=== PATIENT | male | born 1975 | race Caucasian/White ===

== ENCOUNTER 2021-03-17 06:58 | Observation (INO) | payer MEDICAID, SELFPAY ==
[2021-03-17] VITALS (32 sets, daily range): BP systolic 107–145; BP diastolic 63–84; PULSE 65–93; RESP 12–25; TEMP 36.5–37.1; O2SAT 95–100; BMI 24.3
--- NOTE | 2021-03-17 07:20 | ECG_ITS ---
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 Measurements Intervals [place] Rate: 73 P: 65 WV: 191 QRS: -17 QRSD: 88 T: 32 QT: 361 QTc: 400 Interpretive Statements SINUS RHYTHM POSSIBLE LEFT ATRIAL ENLARGEMENT [-0.1mV P WAVE IN V1/V2] No previous ECG available for comparison Electronically Signed On 03-17-2021 17:09:42 CDT by Franklin Mackenzie M.D. [email or web address]eFuelDepotCollege of Nursing and Health Sciences ([facility])[facility] hospitalAmeriTech College/store/OM/[id number]
[2021-03-17] MEDS: morphine 4 mg/mL SDV 1 mL IVP (07:38)
[2021-03-17 07:39] LABS: Glucose Point of Care 112 mg/dL (70-110)
[2021-03-17] MEDS: sodium chloride 0.9% 1,000 ML 75 ML IV ×2 (07:39→21:45)
[2021-03-17 08:21] LABS: Basophils % 0.5 %; Eosinophils # 0.1 10^3/uL (0.0-0.8); Eosinophils % 2.8 %; Hematocrit 38.8 % (42.0-52.0); Hemoglobin 13.1 g/dL (11.7-16.6); Lymphocytes # 0.6 10^3/uL (0.8-4.8); Lymphocytes % 14.7 %; Mean Corpuscular HGB Conc 33.8 g/dL (30.0-36.0); Mean Corpuscular Hemoglobin 27.9 pg (28.0-34.0); Mean Corpuscular Volume 82.6 fL (80-94); Mean Platelet Volume 12.2 fL (7.4-10.4); Monocytes # 0.5 10^3/uL (0.2-0.9); Monocytes % 11.6 %; Neutrophils # 2.72 10^3/uL (1.8-7.7); Neutrophils % 70.1 %; Nucleated Red Blood Cells % 0 %; Platelet Count 95 10^3/cmm (130-400); Red Cell Distribution Width 13.9 % (12.1-15.1); White Blood Count 3.9 10^3/uL (4.0-10.0)
--- NOTE | 2021-03-17 08:22 | P.HP_ITS ---
Providers/Chief Complaint Admitting Physician: Yaritza Chavez MD Chief Complaint: Bilateral Lower Ext Ischemia History of Present Illness Arias Blanca is a 45 year old male who presents as a transfer from [facility]. He reports he has been having difficulties with his feet, lower extremities for years. He reports he has had intermittent infections for which she has received antibiotics. Lately, they have been more concerned regarding the blood flow to his lower extremities. He reports he has had an ultrasound before, but never a CTA. In 2018 he was evaluated by vascular surgery and not thought to have significant vascular disease at that time. He reports lately he has been hospitalized about every month to 6 weeks and diagnosed with cellulitis bilaterally, given antibiotics, gradually gotten amber r and gone home. It seems worse currently. He reports when he gets up and walks he reliably has pain in his lower extremities, distal to his calves and severe foot pain that is alleviated by sitting. He reports swelling of his legs, erythema of his legs. He denies any fever. Review of Systems General: Reports: 10 or more systems reviewed and unremarkable except in HPI and below Const: Denies: fever(s) or chills Eyes: Denies: change in vision ENMT: Denies: throat pain Card: Denies: chest pain Resp: Denies: dyspnea GI: Denies: abdominal pain : Denies: flank pain Musc: Reports: extremity pain and extremity swelling Skin/Breast: Reports: erythema; Denies: rash Neuro: Denies: headache(s) Endo: Denies: polyuria Qamar/Lymph: Denies: easy bruising All/Imm: Denies: urticaria Medications/Allergies Allergies Allergy/AdvReac Type Severity Reaction Status Date / Time No Known Allergies Allergy Verified 03/17/21 07:25 PFSH Acute PFSH: Medical History (Updated 03/17/21 @ 08:34 by Cuate Tan MD) Diabetes Neuropathy Family History (Updated 03/17/21 @ 08:28 by Cuate Tan MD) Other Diabetes Social History (Updated 03/17/21 @ 08:28 by Cuate Tan MD) Smoking and tobacco status: never smoked Alcohol intake: never Supplemental PFSH Information: Denies any past surgical history. Vitals/I&O/Wt Last Vital Signs Temp 98.1 F 03/17/21 07:04 Pulse 85 03/17/21 07:45 Resp 18 03/17/21 07:45 BP 133/75 03/17/21 07:45 Pulse Ox 100 03/17/21 07:45 Weight last 48 hrs Weight 83.461 kg Physical Exam Narrative: EXAM NARRATIVE: General exam is a white male, informative, and obvious lower extremity pain HEENT: Pupils equally round. Oropharynx is clear. Neck is supple no lymphadenopathy or thyromegaly Cardiovascular regular rate and rhythm without murmur, no S3 or S4 Lungs clear no wheezing or crackles Abdomen is soft with positive bowel sounds. No obvious organomegaly was deferred Extremities no cyanosis clubbing. Erythema is noted ankles to feet bilaterally. Pulses difficult to feel. Feet are not cold, but loss of hair is apparent over lying the toes. There is pain to palpation. No obvious skin breakdown. Rather symmetric. Data : 03/17/21 07:53 03/17/21 07:53 Micro: Microbiology 03/17/21 08:00 Blood Culture - Preliminary Blood SPECIMEN COLLECTED 03/17/21 07:53 Blood Culture - Preliminary Blood SPECIMEN COLLECTED Other data: White blood cell count 3.0, hemoglobin 14.0, platelet count 106. Sodium 140, potassium 4.2, chloride 103, bicarb 25, creatinine 0.8, LFTs normal. Sedimentation rate 2 Lactic acid 1.1 CPK 60 Covid RNA negative Arterial duplex demonstrates scattered plaque formation both lower extremities with the right demonstrating triphasic waveforms in the femoral superficial femoral popliteal peroneal and proximal tibial with biphasic flow seen distally. The left demonstrated monophasic flow in the common femoral superficial femoral popliteal peroneal posterior tibial and dorsalis pedis. Some triphasic flow was seen in the proximal profunda. All of this was consistent with moderate to severe bilateral lower extremity peripheral vascular disease. A&P Assessment and plan (1) Lower limb ischemia: Initiate aspirin 325 mg daily Check lipids. Consider statin Heparin drip I will discuss with interventional cardiology regarding potential for consult with them or vascular surgery for further guidance Considering the bilateral nature, that is symmetric and normal sedimentation ra te, no fever, no elevation in white blood cell count I believe cellulitis is unlikely. May need further imaging such as CTA aorta with runoff Change to regular admission. He will require greater than 2 midnights secondary to his severe pain, ischemia, and need for further work-up Pain control with Dilaudid, hydrocodone N.p.o. until I can have a discussion with control systems specialist. Saline for hydration. Check baseline EKG Request records on echocardiogram patient reports was done several months ago. Status: Acute (2) Diabetes: Sliding scale insulin Check hemoglobin A1c Check urinalysis for significant proteinuria. Status: Acute (3) Neuropathy: Initiate Neurontin 300 mg twice daily and increase as tolerated Status: Acute (4) Thrombocytopenia: Check HIV, hepatitis panel, CRP, TSH Status: Acute Additional A&P Information Full code Heparin drip will suffice for DVT prophylaxis Attestations Medical Necessity Statement*: Will need greater than 2 midnight stay for evaluation and treatment of severe lower extremity ischemia with pain. Time Spent in Patient Care: Greater than 35 minutes Coding Level of Care Code Acute Pattern Worker for g Fwd Diagnoses Lower limb ischemia I99.8 Diabetes E11.9 Neuropathy G62.9 Thrombocytopenia D69.6
[2021-03-17 08:29] LABS: INR 1.01 (0.8-1.2); Lactic Sepsis W/Reflex 1.2 mmol/L (0.5-2.2); Partial Thromboplastin Time 28.1 SECONDS (23.9-36.7)
[2021-03-17 08:30] LABS: Alanine Aminotransferase < 5 U/L (0-41); Albumin Level 4.6 g/dL (3.5-5.2); Alkaline Phosphatase 49 IU/L (40-130); Anion Gap 16.7 (5-19); Aspartate Amino Transferase 11 U/L (0-40); Blood Urea Nitrogen 7 mg/dL (6-20); Calcium 8.6 mg/dL (8.5-10.5); Carbon Dioxide 26 mmol/L (22-29); Chloride 99 mmol/L (98-107); Creatinine Clr Calc Pharmacy 151.6765; Globulin 1.8 g/dL (1.3-4.6); Glomerular Filtration Rate 121.4 mL/min (90-130); Glucose 111 mg/dL (65-115); Magnesium 1.7 mg/dL (1.7-2.3); Osmolality Calculated 285 mOsm/kg (285-295); Potassium 3.7 mmol/L (3.5-5.1); Sodium 138 mmol/L (136-145); Total Bilirubin 0.5 mg/dL (0.15-1.2); Total Protein 6.4 g/dL (6.6-8.7)
[2021-03-17 08:53] LABS: C Reactive Protein 0.6 mg/L (0.0-4.9)
--- NOTE | 2021-03-17 08:53 | CT_ITS ---
WS: [id number] CT ANGIOGRAPHY OF THE ABDOMINAL AORTA WITH RUNOFF TO THE ANKLES HISTORY: lower extremity ischemia TECHNIQUE: Arterial injection is performed during imaging to evaluate the aorta and runoff vessels to the ankles. MIP and volume rendering imaging has also been performed. All images are reviewed. All C T scans at [facility] use at least one of these dose optimization techniques: automated ex posure control; mA and/or kV adjustment per patient size (includes targeted exams where dose is match ed to clinical indication); or iterative reconstruction. Contrast: Omnipaque 350; 95 mL IV. DLP: 3393.06 mGy.cm COMPARISON: None available. Abdominal aorta: Very mild atherosclerotic plaque and intimal thickening. No aneurysm or occlusion. C eliac axis, SMA and DIANNA are patent. Normal caliber renal arteries. Bilateral accessory renal arteries . RIGHT lower extremity arterial system: Small amount of calcified plaque in the iliac artery. Common, internal and external iliac arteries are patent. Common femoral and superficial femoral arteries are patent. Deep profunda is patent. Small amount of calcified plaque through the popliteal artery in Hun ter's canal. Adequate three-vessel runoff to the ankle. LEFT lower extremity arterial system: Short segment common iliac artery. Bifurcation is intact. There is calcified plaque and intimal thickening but no occlusions. Common femoral, superficial femoral an d deep profunda with no high-grade stenosis. There is a focal 50% narrowing in Tien's canal. Three- vessel runoff to the ankle is intact. Dependent changes at the lung bases. Early enhancement of the visceral organs demonstrates no abnorma lity throughout the upper abdomen. Good enhancement of each kidney. No adenopathy or free fluid. Diff use constipation. Prostate gland enlargement encroaching into the urinary bladder. CT/CT angio abd aorta runof 85702 IMPRESSION: 1. Near 50% stenosis distal LEFT SFA at Tien's canal. 2. There is additional mild atherosclerotic plaque throughout the abdominal ao rta and lower extremity arteries. No high-grade areas of stenosis or occlusion. Good three-vessel runoff to the ankles. 3. Normal enhancement of the kidneys additional bilateral accessory renal sesar emeka.
[2021-03-17] MEDS: HYDROmorphone 1 mg/mL INJ 1 mL IVP ×4 (08:57→21:39)
[2021-03-17] MEDS: gabapentin 300 mg Capsule PO ×2 (08:58→17:37)
[2021-03-17] MEDS: aspirin 325 mg Tablet PO (08:58)
[2021-03-17] MEDS: ondansetron 2 mg/ML SDV 2 mL 4 MG IVP (09:01)
[2021-03-17 09:41] LABS: Estmated Average Glucose 105; Hemoglobin A1C 5.3 % (4.0-6.0)
[2021-03-17] MEDS: iohexol 350 mg/mL 100 mL Btl IV ×2 (10:11)
[2021-03-17] MEDS: heparin drip 25,000 UNIT/500 ML PREMIX 23.4 UNIT IV (10:37)
[2021-03-17] MEDS: heparin 5,000 unit/mL INJ 1 mL IV (10:37)
[2021-03-17 10:45] LABS: Bilirubin Urine Neg (Negative); Blood Urine Neg (Negative); Glucose Urine UA Norm (Normal); Ketones Urine Negative (Negative); Leukocyte Esterase Urine Negative (Negative); Nitrate Urine Negative (Negative); Protein Urine Neg (Negative); Specific Gravity, Urine 1.005 (1.005-1.030); Urine Appearance Clear (CLEAR); Urine Color Straw (Yellow); Urobilinogen Urine Norm (Negative); pH Urine 7 (5-7)
[2021-03-17 10:58] LABS: Add Urine Culture? No
[2021-03-17 12:11] LABS: Glucose Point of Care 95 mg/dL (70-110)
--- NOTE | 2021-03-17 12:13 | PM.CONSULT ---
Providers/Reason For Consult Consulting Physician/Specialty*: Franklin Mackenzie MD/Cardiology Reason for Consult*: Peripheral artery disease Requesting Physician: Dr Tan Attending Physician: Cuate Tan MD History of Present Illness History of Present Illness Arias Blanca is a 45 year old male with PMH of diabetes has presented as a transfer from [facility]. Patient has been having difficulty with lower extremity discomfort and significant foot pain on exertion. He has been treated with antibiotics for recurrent infections of bilateral lower extremities. He underwent vascular ultrasound at outside hospital showed moderate to severe peripheral artery disease. Patient's foot sensation is also decreased secondary to neuropathy. Both feet have erythema. There is tenderness to touch as well. He was evaluated by vascular surgery according to him in 2018 and at that time was not found to have any significant peripheral artery disease. Review of Systems General: Reports: 10 or more systems reviewed and unremarkable except in HPI and below Const: Denies: fever(s) or chills Eyes: Denies: change in vision ENMT: Denies: throat pain Card: Denies: chest pain Resp: Denies: dyspnea GI: Denies: abdominal pain : Denies: flank pain Musc: Reports: extremity pain and extremity swelling Skin/Breast: Reports: erythema; Denies: rash Neuro: Denies: headache(s) Endo: Denies: polyuria Qamar/Lymph: Denies: easy bruising All/Imm: Denies: urticaria Meds/Allergies Home Medications and Allergies Home Medications Medication Instructions Recorded Confirmed Last Taken Type ibuprofen 400 mg PO TID PRN 03/17/21 03/17/21 Unknown History metformin 1,000 mg PO BID 03/17/21 03/17/21 Unknown History Allergies Allergy/AdvReac Type Severity Reaction Status Date / Time No Known Allergies Allergy Verified 03/17/21 07:25 Current Medications Current Medications Generic Name Dose Route Start Last Admin Trade Name Freq PRN Reason Stop Dose Admin Aspirin 325 mg 03/17/21 09:00 03/17/21 08:58 Aspirin 325 Mg Tablet PO 325 mg DAILY GRACIELA Administration Gabapentin 300 mg 03/17/21 09:00 03/17/21 08:58 Gabapentin 300 Mg Capsule PO 300 mg BID GRACIELA Administration Heparin Sodium (Beef Lung) 0 unit 03/17/21 08:18 03/17/21 10:37 Heparin 5,000 Unit/Ml Inj 1 Ml IV 4,200 unit PRN PRN Administration Heparin weight-base protocol Protocol Hydromorphone HCl 1 mg 03/17/21 08:11 03/17/21 08:57 Hydromorphone 1 Mg/Ml Inj 1 Ml IVP 1 mg Q2H PRN Administration PAIN Sodium Chloride 1,000 mls @ 75 mls/hr 03/17/21 07:30 03/17/21 07:39 Sodium Chloride 0.9% IV 75 mls/hr .[id number] GRACIELA Administration Heparin Sodium/Sodium Chloride 25,000 unit in 500 mls @ 0 mls/hr 03/17/21 08:30 03/17/21 10:37 Heparin Drip IV 14 unit/kg/hr .Q0M GRACIELA 23.4 mls/hr Administration Protocol Per Protocol Ondansetron HCl 4 mg 03/17/21 07:20 03/17/21 09:01 Ondansetron 2 Mg/Ml Sdv 2 Ml IVP 4 mg Q6H PRN Administration NAUSEA AND VOMITING PFSH Acute PFSH: Medical History Diabetes Neuropathy Family History Other Diabetes Social History Smoking and tobacco status: never smoked Alcohol intake: never Vitals/I&O/Wt Last Vital Signs Temp 98.1 F 03/17/21 07:04 Pulse 85 03/17/21 07:45 Resp 25 H 03/17/21 08:57 BP 133/75 03/17/21 07:45 Pulse Ox 97 03/17/21 08:57 Weight last 48 hrs Weight 184 lb Physical Exam Narrative: EXAM NARRATIVE: GENERAL: Patient is alert, awake and oriented x3. [] NECK: No jugular vein distension. [] HEENT: No cyanosis. No icterus. No pallor. [] HEART: Regular S1 and S2. No murmur, rub or gallop. [] LUNGS: Clear to auscultate bilaterally. [] ABDOMEN: Soft, nontender and nondistended. Positive bowel sounds. No guarding, rebound or tenderness. [] CENTRAL NERVOUS SYSTEM: Grossly nonfocal. [] EXTREMITIES: Lower extremities have palpable pulses. Good doppler signals for DP/PT bilaterally. Feet are not cold. Tender to touch. Data Micro: Micro: Microbiology 03/17/21 08:00 Blood Culture - Pr eliminary Blood SPECIMEN [facility] 03/17/21 07:53 Blood Culture - Pr eliminary Blood SPECIMEN [facility] A&P Assessment and plan (1) Neuropathy: Status: Acute (2) Diabetes: Status: Acute (3) Erythema of foot: Status: Acute Patient had multiple admissions to the hospital with bilateral lower extremity erythema being treated as a cellulitis. This time concern was lower extremity ischemia. On physical examination patient's peripheral pulses are palpable and has good Doppler signals to the foot. His symptoms of foot pain bilaterally and erythema are not explained by peripheral artery disease. We can obtain CTA of abdomen with runoff to the lower extremities for evaluation of peripheral artery disease. Continue aspirin. No indication for acute limb. Can hold off on heparin drip. His symptoms likely secondary to neuropathy and microvascular disease. Thank you for involving us with care of this patient. We will continue to follow. Please call with questions Coding Level of Care Code Acute Engineering Group Leader for Izzy Galvin Diagnoses Neuropathy G62.9 Diabetes E11.9 Erythema of foot L53.9
[2021-03-17] MEDS: nitroglycerin 1 gm/inch oint Pkt 0.5 INCH TOPICAL ×2 (12:18→17:38)
[2021-03-17 12:43] LABS: Uric Acid 5.3 mg/dL (3.4-7.0)
[2021-03-17] MEDS: HYDROcodone-acetaminophen 5-325 mg Tablet 1 TAB PO ×2 (14:48→19:54)
[2021-03-17 16:50] LABS: Partial Thromboplastin Time 75.3 SECONDS (23.9-36.7)
[2021-03-17 17:17] LABS: Glucose Point of Care 106 mg/dL (70-110)
[2021-03-17 17:51] LABS: HIV 1 & 2 Antibody Non-Reactive (Non-Reactiv); HIV 1 & 2 Antigen Non-Reactive (Non-Reactiv)
--- NOTE | 2021-03-17 19:22 | PC.NURSE ---
Report to Luciana LESLIE at this time.
[2021-03-17 20:41] LABS: Hepatitis A Antibody IgM Non-Reactive (Nonreactive); Hepatitis B Core IgM Non-Reactive (Nonreactive); Hepatitis B Surface Antigen Non-Reactive (Nonreactive); Hepatitis C Virus Antibody Non-Reactive (Nonreactive)
[2021-03-17 21:10] LABS: Glucose Point of Care 150 mg/dL (70-110)
[2021-03-18] MEDS: nitroglycerin 1 gm/inch oint Pkt 0.5 INCH TOPICAL ×2 (00:10→06:12)
[2021-03-18] MEDS: HYDROcodone-acetaminophen 5-325 mg Tablet 1 TAB PO ×3 (01:05→10:47)
[2021-03-18 03:27] VITALS: BP 115/69; PULSE 75; RESP 16; TEMP 36.4; O2SAT 97
[2021-03-18 05:59] VITALS: PULSE 77
[2021-03-18 06:07] LABS: Glucose Point of Care 84 mg/dL (70-110)
[2021-03-18 06:12] LABS: Basophils % 0.5 %; Eosinophils # 0.2 10^3/uL (0.0-0.8); Hemoglobin 13.2 g/dL (11.7-16.6); Lymphocytes # 0.9 10^3/uL (0.8-4.8); Lymphocytes % 22.8 %; Mean Corpuscular HGB Conc 32.2 g/dL (30.0-36.0); Mean Corpuscular Hemoglobin 27.4 pg (28.0-34.0); Mean Corpuscular Volume 85.1 fL (80-94); Mean Platelet Volume 12.9 fL (7.4-10.4); Monocytes # 0.5 10^3/uL (0.2-0.9); Monocytes % 12.9 %; Neutrophils # 2.22 10^3/uL (1.8-7.7); Neutrophils % 59.5 %; Nucleated Red Blood Cells % 0 %; Platelet Count 95 10^3/cmm (130-400); Red Blood Count 4.82 10^6/uL (4.1-5.3); White Blood Count 3.7 10^3/uL (4.0-10.0)
[2021-03-18 06:22] LABS: Alanine Aminotransferase 7 U/L (0-41); Albumin Level 4.3 g/dL (3.5-5.2); Alkaline Phosphatase 47 IU/L (40-130); Anion Gap 15.7 (5-19); Aspartate Amino Transferase 11 U/L (0-40); Blood Urea Nitrogen 7 mg/dL (6-20); Calcium 8.5 mg/dL (8.5-10.5); Carbon Dioxide 23 mmol/L (22-29); Chloride 103 mmol/L (98-107); Globulin 1.8 g/dL (1.3-4.6); Glomerular Filtration Rate 121.4 mL/min (90-130); Glucose 77 mg/dL (65-115); Osmolality Calculated 283 mOsm/kg (285-295); Potassium 3.7 mmol/L (3.5-5.1); Sodium 138 mmol/L (136-145); Total Bilirubin 0.4 mg/dL (0.15-1.2); Total Protein 6.1 g/dL (6.6-8.7)
[2021-03-18 06:24] LABS: Chol HDL Ratio 3.39 mg/dL (1.0-5.00); Cholesterol 149 mg/dL (0-200); HDL Cholesterol 44 mg/dL (60-100); LDL Cholesterol Calculated 91 mg/dL (50-129); LDL HDL Ratio 2.07 RATIO (0.00-3.22); Triglycerides 72 mg/dL (0-150)
[2021-03-18 07:11] VITALS: BP 111/64; PULSE 79; RESP 16; TEMP 36.9; O2SAT 97
--- NOTE | 2021-03-18 08:37 | PM.PN ---
Subjective Subjective: Interval history: Patient is feeling slightly better but has constant bilateral foot pain. Vitals/I&O/Wt Last Vital Signs Temp 98.5 F 03/18/21 07:11 Pulse 79 03/18/21 07:11 Resp 16 03/18/21 07:11 BP 111/64 03/18/21 07:11 Pulse Ox 97 03/18/21 07:11 03/17/21 03/18/21 03/18/21 22:59 06:59 14:59 Intake Total 1418.62 / 1718.62 800 / 2518.62 120 / 120 Output Total 1450 / 2650 1725 / 4375 Balance -31.38 / -931.38 -925 / -1856.38 120 / 120 Weight last 48 hrs Weight 193 lb 9.6 oz Weight 184 lb Physical Exam Narrative: EXAM NARRATIVE: GENERAL: Patient is alert, awake and oriented x3. [] NECK: No jugular vein distension. [] HEENT: No cyanosis. No icterus. No pallor. [] HEART: Regular S1 and S2. No murmur, rub or gallop. [] LUNGS: Clear to auscultate bilaterally. [] ABDOMEN: Soft, nontender and nondistended. Positive bowel sounds. No guarding, rebound or tenderness. [] CENTRAL NERVOUS SYSTEM: Grossly nonfocal. [] EXTREMITIES: Lower extremities have palpable pulses. Good doppler signals for DP/PT bilaterally. Feet are not cold. Tender to touch. Data : 03/18/21 05:40 03/18/21 05:40 Micro: Microbiology 03/17/21 08:00 Blood Culture - Preliminary Blood NEGATIVE TO DATE 03/17/21 07:53 Blood Culture - Preliminary Blood NEGATIVE TO DATE A&P Assessment and plan (1) Neuropathy: Status: Acute (2) Diabetes: Status: Acute (3) Erythema of foot: Status: Acute Patient had multiple admissions to the hospital with bilateral lower extremity erythema being treated as a cellulitis. This time concern was lower extremity ischemia. On physical examination patient's peripheral pulses are palpable and has good Doppler signals to the foot. His symptoms of foot pain bilaterally and erythema are not explained by peripheral artery disease. Abdominal CTA with run off showed diffuse mild peripheral artery disease bilaterally with a 50% stenosis in the distal SFA. Has good 3 vessel run off to feet bilaterally. His symptoms are likely from severe neuropathy. Primary team initiated Gabapentin. Agree with starting it. Continue aspirin. Thank you for involving us with care of this patient. Please call with questions Attestations Medical Necessity Statement*: Care expected to cross 2 midnights. Coding Level of Care Code Acute Polysilicon Preparation Worker for Izzy Galvin Diagnoses Neuropathy G62.9 Diabetes E11.9 Erythema of foot L53.9
[2021-03-18] MEDS: gabapentin 300 mg Capsule PO (09:13)
[2021-03-18] MEDS: aspirin 325 mg Tablet PO (09:13)
[2021-03-18] MEDS: sodium chloride 0.9% 1,000 ML 75 ML IV (09:16)
--- NOTE | 2021-03-18 09:25 | P.DS_ITS ---
Discharge Providers Date of Admission: 03/17/21 06:58 Date of Discharge: March 18, 2021 Attending Provider at Admission: Yaritza Chavez MD Attending Provider at Discharge: Cuate Tan MD Diagnoses at Discharge Discharge Diagnosis (1) Neuropathy: Status: Acute (2) Diabetes: Status: Acute (3) Erythema of foot: Status: Acute Reason for Visit Reason for Visit: Bilateral Lower Ext Ischemia Hospital Course Hospital Course Arias is a 45-year-old male who presented to the hospital with complaints of bilateral lower extremity pain and redness. He had not had any fever. He was transferred from [facility] emergency department with concern of critical ischemia secondary to a arterial ultrasound demonstrating moderate to severe arterial disease bilaterally. Patient had longstanding history of neuropathy, presumably secondary to diabetes. On my evaluation there was no evidence of cellulitis. Bilateral rubor was noted, hair loss, pain all possibly consistent with severe peripheral vascular disease although extremities were warm. Pulses were difficult to feel. Consultation with cardiology, interventional occurred and CTA of abdominal aorta with runoff was obtained. This did not demonstrate critical limb ischemia. It did demonstrate peripheral vascular disease with greatest narrowing being a part of [facility] Aspirin was initiated. Cholesterol was checked and eventually statin initiated on discharge. Neurontin was started for neuropathy. Pain medicine was initiated for pain. With elevation of legs, treatment of pain, he was improved by the following day on March 18 and able to be discharged home. Of note he was also found to hav slightly low platelet count and white blood cell count. I asked that this be evaluated as an outpatient by his [place] care provider. Hepatitis screening, HIV were negative in the hospital. TSH was slightly elevated and patient was counseled to have this repeated in approximately 6 months. Sedimentation rate, CRP not elevated. Physical Exam Narrative: EXAM NARRATIVE: General exam no apparent distress Cardiovascular regular rate and rhythm without murmur Lungs clear Abdomen is soft positive bowel sounds Extremities no cyanosis clubbing , erythema somewhat improved. Cap refill brisk. Discharge Data Data Completed and Pending: Completed Studies During Hospitalization Category Date Time Status CT angio abd aort a runof [id number] Rout ine Cat Scan 03/17/21 08:53 Completed Pending at discharge Category Date Time Status Blood Culture Sta t Lab 03/17/21 08:00 Results Labs from last 24 hours 03/18/21 03/18/21 03/18/21 05:58 05:40 05:40 WBC RBC Hgb Hct MCV MCH MCHC RDW Plt Count MPV Neut % (Auto) Lymph % (Auto) Walsh % (Auto) Eos % (Auto) Baso % (Auto) Neut # (Auto) Lymph # (Auto) Walsh # (Auto) Eos # (Auto) Baso # (Auto) Nucleated RBC % (a uto) Nucleated RBCs # APTT Sodium 138 Potassium 3.7 Chloride 103 Carbon Dioxide 23 Anion Gap 15.7 BUN 7 Creatinine 0.7 GFR Calculation 121.4 Glucose 77 POC Glucose 84 Estimat Average Gl ucose Hemoglobin A1c Calculated Osmolal ity 283 L Uric Acid Calcium 8.5 Total Bilirubin 0.4 AST 11 ALT 7 Alkaline Phosphata se 47 Total Protein 6.1 L Albumin 4.3 Globulin 1.8 Triglycerides 72 Cholesterol 149 LDL Cholesterol, C alc 91 HDL Cholesterol 44 L LDL/HDL Ratio 2.07 Cholesterol/HDL Ra jimmy 3.39 TSH Urine Color Urine Appearance Urine pH Ur Specific Gravit y Urine Protein Urine Glucose (UA) Urine Ketones Urine Blood Urine Nitrate Urine Bilirubin Urine Urobilinogen Ur Leukocyte Rafaela ase Urine RBC Urine WBC Ur Squamous Epith Cells Amorphous Sediment Urine Bacteria Hepatitis A IgM Ab Hep Bs Antigen Hep B Core IgM Ab Hepatitis C Antibo dy HIV 1&2 Ab & HIV 1 Ag HIV 1&2 Antibody 03/18/21 03/17/21 03/17/21 05:40 21:07 17:03 WBC 3.7 L RBC 4.82 Hgb 13.2 Hct 41.0 L MCV 85.1 MCH 27.4 L MCHC 32.2 RDW 14.0 Plt Count 95 L MPV 12.9 H Neut % (Auto) 59.5 Lymph % (Auto) 22.8 Walsh % (Auto) 12.9 Eos % (Auto) 4.0 Baso % (Auto) 0.5 Neut # (Auto) 2.22 Lymph # (Auto) 0.9 Walsh # (Auto) 0.5 Eos # (Auto) 0.2 Baso # (Auto) 0.0 Nucleated RBC % (a uto) 0 Nucleated RBCs # 0.0 APTT Sodium Potassium Chloride Carbon Dioxide Anion Gap BUN Creatinine GFR Calculation Glucose POC Glucose 150 H 106 Estimat Average Gl ucose Hemoglobin A1c Calculated Osmolal ity Uric Acid Calcium Total Bilirubin AST ALT Alkaline Phosphata se Total Protein Albumin Globulin Triglycerides Cholesterol LDL Cholesterol, C alc HDL Cholesterol LDL/HDL Ratio Cholesterol/HDL Ra jimmy TSH Urine Color Urine Appearance Urine pH Ur Specific Gravit y Urine Protein Urine Glucose (UA) Urine Ketones Urine Blood Urine Nitrate Urine Bilirubin Urine Urobilinogen Ur Leukocyte Rafaela ase Urine RBC Urine WBC Ur Squamous Epith Cells Amorphous Sediment Urine Bacteria Hepatitis A IgM Ab Hep Bs Antigen Hep B Core IgM Ab Hepatitis C Antibo dy HIV 1&2 Ab & HIV 1 Ag HIV 1&2 Antibody 03/17/21 03/17/21 03/17/21 16:17 16:17 16:17 WBC RBC Hgb Hct MCV MCH MCHC RDW Plt Count MPV Neut % (Auto) Lymph % (Auto) Walsh % (Auto) Eos % (Auto) Baso % (Auto) Neut # (Auto) Lymph # (Auto) Walsh # (Auto) Eos # (Auto) Baso # (Auto) Nucleated RBC % (a uto) Nucleated RBCs # APTT 75.3 H D Sodium Potassium Chloride Carbon Dioxide Anion Gap BUN Creatinine GFR Calculation Glucose POC Glucose Estimat Average Gl ucose Hemoglobin A1c Calculated Osmolal ity Uric Acid Calcium Total Bilirubin AST ALT Alkaline Phosphata se Total Protein Albumin Globulin Triglycerides Cholesterol LDL Cholesterol, C alc HDL Cholesterol LDL/HDL Ratio Cholesterol/HDL Ra jimmy TSH Urine Color Urine Appearance Urine pH Ur Specific Gravit y Urine Protein Urine Glucose (UA) Urine Ketones Urine Blood Urine Nitrate Urine Bilirubin Urine Urobilinogen Ur Leukocyte Rafaela ase Urine RBC Urine WBC Ur Squamous Epith Cells Amorphous Sediment Urine Bacteria Hepatitis A IgM Ab Non-reactive Hep Bs Antigen Non-reactive Hep B Core IgM Ab Non-reactive Hepatitis C Antibo dy Non-reactive HIV 1&2 Ab & HIV 1 Ag Non-reactive HIV 1&2 Antibody Non-reactive 03/17/21 03/17/21 03/17/21 12:08 09:50 07:53 WBC RBC Hgb Hct MCV MCH MCHC RDW Plt Count MPV Neut % (Auto) Lymph % (Auto) Walsh % (Auto) Eos % (Auto) Baso % (Auto) Neut # (Auto) Lymph # (Auto) Walsh # (Auto) Eos # (Auto) Baso # (Auto) Nucleated RBC % (a uto) Nucleated RBCs # APTT Sodium Potassium Chloride Carbon Dioxide Anion Gap BUN Creatinine GFR Calculation Glucose POC Glucose 95 Estimat Average Gl ucose Hemoglobin A1c Calculated Osmolal ity Uric Acid 5.3 Calcium Total Bilirubin AST ALT Alkaline Phosphata se Total Protein Albumin Globulin Triglycerides Cholesterol LDL Cholesterol, C alc HDL Cholesterol LDL/HDL Ratio Cholesterol/HDL Ra jimmy TSH Urine Color Straw Urine Appearance Clear Urine pH 7 Ur Specific Gravit y 1.005 Urine Protein Neg Urine Glucose (UA) Norm Urine Ketones Negative Urine Blood Neg Urine Nitrate Negative Urine Bilirubin Neg Urine Urobilinogen Norm Ur Leukocyte Rafaela ase Negative Urine RBC None Urine WBC None Ur Squamous Epith Cells None Amorphous Sediment Not Reportable Urine Bacteria None Hepatitis A IgM Ab Hep Bs Antigen Hep B Core IgM Ab Hepatitis C Antibo dy HIV 1&2 Ab & HIV 1 Ag HIV 1&2 Antibody 03/17/21 03/17/21 07:53 07:53 WBC RBC Hgb Hct MCV MCH MCHC RDW Plt Count MPV Neut % (Auto) Lymph % (Auto) Walsh % (Auto) Eos % (Auto) Baso % (Auto) Neut # (Auto) Lymph # (Auto) Walsh # (Auto) Eos # (Auto) Baso # (Auto) Nucleated RBC % (a uto) Nucleated RBCs # APTT Sodium Potassium Chloride Carbon Dioxide Anion Gap BUN Creatinine GFR Calculation Glucose POC Glucose Estimat Average Gl ucose 105 Hemoglobin A1c 5.3 Calculated Osmolal ity Uric Acid Calcium Total Bilirubin AST ALT Alkaline Phosphata se Total Protein Albumin Globulin Triglycerides Cholesterol LDL Cholesterol, C alc HDL Cholesterol LDL/HDL Ratio Cholesterol/HDL Ra jimmy TSH 5.40 H Urine Color Urine Appearance Urine pH Ur Specific Gravit y Urine Protein Urine Glucose (UA) Urine Ketones Urine Blood Urine Nitrate Urine Bilirubin Urine Urobilinogen Ur Leukocyte Rafaela ase Urine RBC Urine WBC Ur Squamous Epith Cells Amorphous Sediment Urine Bacteria Hepatitis A IgM Ab Hep Bs Antigen Hep B Core IgM Ab Hepatitis C Antibo dy HIV 1&2 Ab & HIV 1 Ag HIV 1&2 Antibody Vitals: Last Vital Signs Temp 98.5 F 03/18/21 07:11 Pulse 79 03/18/21 07:11 Resp 16 03/18/21 07:11 BP 111/64 03/18/21 07:11 Pulse Ox 97 03/18/21 07:11 Discharge Plan Discharge Patient Disposition: Home Condition: Stable Prescriptions: New hydrocodone-acetaminophen 5-325 mg Tablet 1 tab PO Q4H PRN (Reason: Moderate Pain) Qty: 20 RF: 0 gabapentin [Neurontin] 300 mg capsule 300 mg PO TID Qty: 90 RF: 0 aspirin 325 mg Tablet 325 mg PO DAILY Qty: 30 RF: 0 atorvastatin [Lipitor] 20 mg tablet 20 mg PO DAILY Qty: 30 RF: 0 Continued metformin 1,000 mg tablet 1,000 mg PO BID RF: 0 Discontinued ibuprofen 200 mg Tablet 400 mg PO TID PRN (Reason: Pain) RF: 0 Discharge Orders: Discharge Order (Routine); Ordered 03/18/21 Ordered By: Cuate Tan Discharge Diet: Diabetic Discharge Activity: Increase activity as tolerated Patient Instructions: Diabetic Neuropathy, Hydrocodone/Acetaminophen (By mouth), Aspirin (By mouth), Gabapentin (By mouth), Atorvastatin (By mouth), Opioid Safety Activity Restrictions/Additional Instructions: Follow-up with your primary care provider 4 to 7 days, for further adjustments of Neurontin May try Capsaicin cream [id number] as needed. Precautions already given. May restart Metformin on March 20. Held secondary to radiological dye you received. Follow-up with your primary care provider regarding your leukopenia and thrombocytopenia. May consider consultation with hematology. Please send copies of this discharge summary to Leslie Daniels, practitioner in [place] who patient identifies as his primary care provider. Discharge Attestations Time Spent in Discharge Care*: greater than 30 min Quality Metrics Clinical Quality Measures During this hospital stay, did patient experience: None Coding Level of Care Code Acute [facility] note Diagnoses Neuropathy G62.9 Diabetes E11.9 Erythema of foot L53.9
--- NOTE | 2021-03-18 10:11 | PC.CHAP ---
Pastoral Care Encounter/Spiritual Assessment Type of Contact [] Declined ammunition assembly ii laborer visit [] Patient/Family/Request visit [] Outpatient visit [] Follow-up visit [] Physician referral [] Code/Alert [x] Routine visit [] Staff referral [] Actively dying [] Patient sleeping [] Family support [] [] Out of room [] Palliative care [] [] Receiving care in room [] Pre-surgical visit [] Trauma [] Long length of stay [] ICU visit [] Other: Relational/Emotional Strength [x] Patient feels connected with others/family/visitors/staff [] Distress [] Loneliness/isolation [] Abandonment Spirituality of Patient [x] Person of [place]ina [x] Attends Pentecostal of their [place] [] Believes in Prayer [] Reads Bible or Faith materials [] There are Spiritual issues to be addressed Cloud Systems Architect Interventions [x] Prayer [x] Active listening [x] Non-anxious presence [x] Spiritual/emotional support [] Crisis/trauma care [] Spiritual counseling [] Bereavement support [] Provided bereavement packet [] Provided Bible/devotional materials [] Provided toy/stuffed animal, coloring book to patient or family member [] Provided Communion [] Anointing/[place] [] Salvation [x] Completed spiritual assessment [] Other: Impact on Illness or Injury [] Angry [] Fearful [] Anxious [] Often cries [] Exhaustion [] Unable to work [] Unable to attend quaker [] Unable to walk/stand [] Unable to read [] Unable to drive [] Unable to eat/drink [] Unable to sleep [] Unable to be with family [] Patient intubated [] Other: Summary patient still hase pain but less Time spent with patient 15 min
--- NOTE | 2021-03-18 11:00 | PC.NURSE ---
Addendum entered by Radha Salvador RN 03/18/21 13:23: patients medications were filled and delivered to bedside. patient is ready for discharge once his ride arrives. Original Note: patient verbalizes understanding of discharge instructions, home medications, and follow up appointments.
[2021-03-18 11:20] LABS: Glucose Point of Care 149 mg/dL (70-110)
[2021-03-18 11:30] VITALS: BP 130/80; PULSE 75; RESP 16
[2021-03-18 11:37] VITALS: BP 109/59; PULSE 74; RESP 16; TEMP 36.7; O2SAT 97
[2021-03-18 15:19] VITALS: BP 109/59; PULSE 74; RESP 16; TEMP 36.7; O2SAT 97
== END 2021-03-18 15:20 | disposition home or self-care (01) ==
LOC: ICU 09:15 → MEDSURG 16:27
PROVIDERS: Admitting Provider Hospitalist; Visit Provider Internal Medicine
DX: I99.8 Other disorder of circulatory system (principal); E11.42 Type 2 diabetes mellitus with diabetic polyneuropathy; L53.9 Erythematous condition, unspecified; D69.6 Thrombocytopenia, unspecified; Z83.3 Family history of diabetes mellitus
CPT/HCPCS: 36415; 36416; 75635; 80053; 80061; 80074; 81001; 82962; 83036; 83605; 83735; 84443; 84550; 85025; 85610; 85730; 86140; 87040; 87806; 93005; 96372; G0378; G0379; J1170; J1644; J1815; J2270; J2405; J7030; Q9967